=== PATIENT | male | born 1990 | race Caucasian/White ===

== ENCOUNTER 2018-10-08 16:57 | Emergency (ER) | payer MEDICAID, OTHER ==
[~2018-10-08] VITALS: Ht 170.2 cm; Wt 153.4 kg
[2018-10-08 17:03] VITALS: Ht 170.2 cm; Wt 153.4 kg
[2018-10-08] MEDS ORDERED: KETOROLAC 30 MG INJ IV STA (17:25)
--- NOTE | 2018-10-08 17:28 | ERD ---
ER Documentation Chief Complaint Chief Complaint R mouth pain, cheek/neck swelling X 4 days after tooth extraction HPI 27-year-old male, previously healthy, presents the emergency department, complaining of 4 days with right lower mouth pain after having a molar extraction. The pain is throbbing, constant, 8/10. He denies fevers, no chills, no difficulty swallowing. No medications taken for pain or infection. ROS All systems reviewed and are negative except as per history of present illness. Medications Home Meds Active Scripts Acetaminophen* (Tylenol*) 325 Mg Tablet, 2 TAB PO Q8 PRN for PAIN AND OR ELEVATED TEMP, #20 TAB Prov:NIDIA VELA MD 10/08/18 Chlorhexidine Gluconate* (Chlorhexidine Gluconate*) 118 Ml Liquid, 15 ML TOP QI D, #240 ML Prov:NIDIA VELA MD 10/08/18 Ibuprofen* (Motrin*) 600 Mg Tab, 600 MG PO Q8, #15 TAB Prov:NIDIA VELA MD 10/08/18 Penicillin V Potassium* (Penicillin V K*) 500 Mg Tab, 500 MG PO QID for 10 Days, TAB Prov:NIDIA VELA MD 10/08/18 Allergies Allergies: Coded Allergies: No Known Allergy (Unverified , 10/08/18) FmHx Family History: No diabetes, No coronary disease Physical Exam Vitals Vital Signs Date Temp Pulse Resp B/P (MAP) Pulse Ox O2 O2 Flow FiO2 Time Delivery Rate 10/08/18 98.9 71 20 160/98 98 Room Air 18:53 (118) 10/08/18 98.6 84 18 175/93 97 17:03 (120) Physical Exam Const: No acute distress Head: Right lower mandibular edema and tenderness. Eyes: Normal Conjunctiva ENT: Normal External Ears, Nose and Mouth. Neck: Full range of motion. No meningismus. Resp: Clear to auscultation bilaterally Cardio: Regular rate and rhythm, no murmurs Abd: Soft, non tender, non distended. Normal bowel sounds Skin: No petechiae or rashes Back: No midline or flank tenderness Ext: No cyanosis, or edema Neur: Awake and alert Psych: Normal Mood and Affect Results 24 hrs Current Medications Medications Dose Sig/Valeria Start Time Status Last (Trade) Ordered Route PRN Stop Time Admin Dose Reason Admin Clindamycin 50 ml @ 50 ONCE IVPB 10/08/18 DC 10/08/18 HCl/ mls/hr 17:30 10/08/18 17:53 Dextrose 18:29 10 mg ONCE ONCE 10/08/18 DC 10/08/18 Dexamethasone IV 17:30 10/08/18 17:41 (Decadron) 17:32 Ketorolac 30 mg ONCE STAT 10/08/18 DC 10/08/18 Tromethamine IV 17:25 10/08/18 17:42 (Toradol) 17:32 Sodium 500 ml @ Q1H ONCE 10/08/18 DC 10/08/18 Chloride 500 mls/hr IV 17:30 10/08/18 17:38 18:29 Morphine 10 mg ONCE ONCE 10/08/18 DC 10/08/18 Sulfate PO 17:30 10/08/18 17:41 (morphine) 17:32 Procedures/MDM Differential diagnosis include but not limited to: Dental abscess, parotitis, sialoadenitis, lymphadenopathy, facial abscess. Low suspicion for systemic infection. Physical examination and clinical presentation consistent most likely with den abdias infection. During the ED course the patient remained stable, no new complaints. Clinical impression discussed with the patient who agrees with management. The patient received IV clindamycin, dexamethasone and Toradol in the emergency department, presenting overall improvement of the symptoms. The patient is stable to be treated outpatient and will be discharged home. Some side effects of prescribed medications (headache, rash, nausea, vomiting, diarrhea, drowsiness, habituation, bleeding, hypertension, interactions with other medications) were reviewed. The patient was instructed to follow up with the primary care provider and dentist in the next 48h. If symptoms persist, worsen or new symptoms develop, then patient should return to the ED immediately. Instructions explained and given directly by me to the patient in Estonian with acknowledgment and demonstrated understanding. Disclaimer: Inadvertent spelling and grammatical errors are likely due to EHR/dictation software use and do not reflect on the overall quality of patient care. Also, please note that the electronic time recorded on this note does not necessarily reflect the actual time of the patient encounter. Departure Diagnosis: Primary Impression: Dental infection Condition: Stable Additional Instructions: [place] por [facility] para garcia servicio. Esperamos que en garcia visita a la rad de emergencia garcia problema medico haya sido solucionado y que se sienta mucho mejor. Para estar seguros que garcia mejoria sigue en proceso, le pedimos el favor de hacer anabelle ara de seguimiento medico con garcia doctor primario en los proximos 2-4 cyr. Lleve con usted estos documentos y las medicinas recetadas. Si rosita sintomas empeoran, NO SE ESPERE, por favor regrese a rad de emergencia INMEDIATAMENTE. En flower que usted no tenga un mdico de atencin primaria: Llame al mdico o clnica comunitaria de referencia que aparece abajo abebe las horas de consultorio para hacer anabelle ara para que le vean. CLINICAS: [facility] [phone] [facility] [phone] [facility] [phone] [facility] [phone] [facility] [phone] [facility]. [phone] GSIELL GASCA-NIDIA WILLIAMSON MD Oct 08, 2018 17:28
[2018-10-08] MEDS ORDERED: morphine LIQ (10 MG/5 ML) CUP PO ONE (17:30)
[2018-10-08] MEDS ORDERED: CLINDAMYCIN 900 MG/D5W (PMX) 50 ML IVPB SCH (17:30)
[2018-10-08] MEDS ORDERED: DEXAMETHASONE 10 MG/ML 1 ML INJ IV ONE (17:30)
[2018-10-08] MEDS ORDERED: SOD CHLORIDE 0.9% 500 ML IV ONE (17:30)
[2018-10-08] MEDS ORDERED: IBUP-1542 PO (18:25)
[2018-10-08] MEDS ORDERED: ACET325T33 PO (18:25)
[2018-10-08] MEDS ORDERED: PENI500T PO (18:25)
[2018-10-08] MEDS ORDERED: CHLO118L3 TOP (18:25)
[2018-10-08 18:53] VITALS: BP 160/98; PULSE 71; RESP 20
== END 2018-10-08 18:56 | disposition home or self-care (01) ==
LOC: FTE 16:57
DX: K04.7 Periapical abscess without sinus (principal)
CPT/HCPCS: 96374; 96375; J1100; J1885; J7040; Z7502; Z7610